=== PATIENT | female | born 1965 | race Caucasian/White ===

== ENCOUNTER 2019-07-25 05:04 | Day surgery (SDC) | payer OTHER ==
[2019-07-24 15:23] VITALS: BMI 39.5
[2019-07-25] MEDS ORDERED: PHENAZOPYRIDINE HCL 100 MG TABLET (FP) PO ONE (07:21)
[2019-07-25] MEDS ORDERED: CEFAZOLIN 2 GM/D5W 2 GM/50 ML ML IVPB ONE (07:21)
[2019-07-25] MEDS ORDERED: ROPIVACAINE HCL 0.5% 30ML VIAL ONE (07:23)
[2019-07-25] MEDS ORDERED: MIDAZOLAM HCL 2 MG/2 ML SINGLE DOSE VIAL ONE ×3 (07:24→07:35)
[2019-07-25] MEDS ORDERED: ROCURONIUM BROMIDE 50 MG/5 ML SYRINGE ONE ×3 (07:34→11:24)
[2019-07-25] MEDS ORDERED: DEXAMETHASONE SOD PHOSPHATE 4 MG/1 ML VIAL ONE (07:34)
[2019-07-25] MEDS ORDERED: SUCCINYLCHOLINE CHLORIDE 200 MG/10 ML SYRINGE ONE (07:34)
[2019-07-25] MEDS ORDERED: ceFAZolin SODIUM 1 GM VIAL ONE ×2 (07:34→19:03)
[2019-07-25] MEDS ORDERED: MINERAL OIL/PETROLATUM,WHITE 3.5 GM TUBE ONE (07:35)
[2019-07-25] MEDS ORDERED: PROPOFOL 20 ML ONE ×3 (07:35)
[2019-07-25] MEDS ORDERED: fentaNYL CITRATE 250 MCG/5 ML VIAL ONE ×2 (07:35→09:42)
[2019-07-25] MEDS ORDERED: BUPIVACAINE HCL/PF 0.5% (5 MG/ML) 30 ML VIAL IJ ONE (07:36)
[2019-07-25] MEDS ORDERED: EPHEDRINE SULFATE/0.9% NACL/PF 50 MG/10 ML SYRINGE NR ONE (07:39)
--- NOTE | 2019-07-25 07:49 | HP ---
History & Physical Update - History History: No Change - Physical Physical: No Change - Assessment Assessment: No Change - Plan Plan: No Change (Full H&P in chart from 07/11/19)
[2019-07-25] MEDS: ceFAZolin SODIUM 1 GM VIAL IVPB ONE ×2 (08:55→19:17)
[2019-07-25] MEDS ORDERED: ceFAZolin SODIUM 1 GM VIAL IVPB ONE (09:00)
[2019-07-25] MEDS ORDERED: BUPIVACAINE HCL/PF 0.5% (5MG/ML) 10 ML VIAL IJ ONE ×2 (09:25)
[2019-07-25] MEDS ORDERED: HYDROmorphone HCl 2 MG/ML VIAL ONE (11:14)
[2019-07-25] MEDS ORDERED: NEOSTIGMINE METHYLSULFATE 0.5 MG/ML - 10 ML MDV ONE (11:43)
[2019-07-25] MEDS ORDERED: LORazepam 0.5 MG TABLET PO PRN (12:16)
[2019-07-25] MEDS ORDERED: METOCLOPRAMIDE HCL INJECTION 10 MG/2 ML VIAL IVPUSH PRN (12:16)
[2019-07-25] MEDS ORDERED: ONDANSETRON 4 MG/2 ML VIAL IVPB PRN (12:16)
[2019-07-25] MEDS ORDERED: PROCHLORPERAZINE INJECTION 10 MG/2 ML VIAL IVPB PRN (12:16)
[2019-07-25] MEDS ORDERED: morphine CARPU-JECT 2 MG/1 ML DISP.SYRIN IVPUSH PRN (12:16)
--- NOTE | 2019-07-25 12:24 | OP ---
Operative Note - Note: Operative Date: 07/25/19 Pre-Operative Diagnosis: Left adenexal mass Operation: Robotic assisted hysterectomy, bilateral oopherectomy and salpingectomy, pelvic lymph node dissection Post-Operative Diagnosis: Same as Pre-op Surgeon: Carolyn Omer Experience Planning Strategist: Archie Crooks Anesthesiologist/TEXTILE DESIGNER: Reilly Taylor Anesthesia: General Operative Report Dictated: Yes
--- NOTE | 2019-07-25 12:24 | SURG ---
Surgery Counter Attendant Note Counter Attendant: Archie Crooks PA-C Date of Service: 07/25/19 Diagnosis: Left adenexal mass Procedure: Robotic assisted hysterectomy, bilateral oopherectomy and salpingectomy, pelvic lymph node dissection I was present for the entirety of the operative procedure. For further detail, please refer to operative report. Visit type - Case Type Case Type: Scheduled - Emergency Emergency Visit: No - New patient This patient is new to me today: Yes Date on this admission: 07/25/19 - Critical Care Critical Care patient: No
[2019-07-25] MEDS ORDERED: ACETAMINOPHEN INJECTION 100 ML IVPB ONE (12:53)
[2019-07-25] MEDS: KETOROLAC TROMETHAMINE 30 MG/1 ML VIAL IVPUSH PRN ×2 (13:00→19:15)
[2019-07-25] MEDS ORDERED: ACETAMINOPHEN 1000 MG/100 ML VIAL (NON FORMULARY) IVPB ONE (13:04)
[2019-07-25] MEDS ORDERED: MORPHINE SULFATE 2 MG/ML VIAL IVPUSH PRN (14:19)
--- NOTE | 2019-07-25 14:32 | OP ---
DATE OF OPERATION: 07/25/2019 PREOPERATIVE DIAGNOSIS: Left adnexal mass. POSTOPERATIVE DIAGNOSIS: Left ovarian cancer. PROCEDURE: Robotic-assisted total hysterectomy, bilateral salpingo-oophorectomy, bilateral pelvic periaortic lymph node dissection, and infracolic omentectomy. SURGEON: Carolyn Omer MD PLATFORM LOADER: ANESTHESIA: General endotracheal and local. ESTIMATED BLOOD LOSS: 50 mL. INDICATIONS: This is a 53-year-old 4, para 3 with history of a left adnexal mass and strong family history of ovarian and breast cancer. She presented with pelvic pain for 1 year in the left lower quadrant. On May 30, 2019, she had a pelvic ultrasound that showed the uterus to be 7.2 x 6.0 x 4.9 cm. Endometrial stripe was 2.46 mm. Left ovary was 7.6 x 8.3 x 8.5 cm. Right ovary appeared normal. She has a family history of ovarian and breast cancer in her mother and maternal grandmother with ovarian cancer. Maternal aunt and maternal cousin with breast cancer. Patient reports negative genetic testing in 2010. Patient was consulted regarding surgical management. Risks, benefits, indications, alternatives were discussed with the patient. All questions were answered. Informed consent was signed. FINDINGS: Cervix, no lesions. Vagina, no lesions. Intra-abdominal findings, normal liver edge, normal diaphragm, normal appendix. Uterus 8 weeks size. Left ovary contained an 8-mm smooth walled cyst. Right ovary and tube appeared normal. Left tube appeared normal. The cul-de-sac appeared normal. There was no ascites or evidence of disease. Omentum appeared normal. There were several left pelvic lymph nodes, which were enlarged and suspicious as well as right obturator pelvic lymph node, which appeared suspicious. There was no other evidence of disease in the abdomen or pelvis. DESCRIPTION OF PROCEDURE: The patient was taken to the operating room. Placed in the dorsal supine position. General endotracheal anesthesia was obtained without difficulty. She was placed in the dorsal lithotomy position in Dima stirrups and prepped and draped in normal sterile fashion. Loera catheter was placed in the bladder. A speculum was placed in the vagina. Cervix was grasped with a single-tooth tenaculum, and a VCare uterine manipulator was placed. Tenaculum and speculum were then removed. Attention was turned to the patient's abdomen, 5 mL of 0.25% Marcaine was injected into the umbilicus, and an 8-mm incision was made with a scalpel. While tenting the anterior abdominal wall, the Veress needle was inserted intra-abdominally, and abdomen was insufflated with CO2 gas. An 8-mm trocar was placed. Intra-abdominal placement was confirmed by direct visualization with a laparoscope. Additional 8-mm trocar was placed in the left mid quadrant and right mid quadrant, and a 5-mm AirSeal port was placed in the right lower quadrant. All trocars were placed under direct visualization after injecting 0.25% Marcaine. A thorough exam of the abdomen and pelvis revealed the above-noted findings. Peritoneal washings were taken using normal saline. The [place] robot was then docked without difficulty. The right adnexa was elevated. The right ureter was noted to be well away from the field of dissection. The right infundibulopelvic ligament was clamped, cauterized, and transected. This was carried through the broad ligament and the round ligament and the vesicouterine peritoneum anteriorly. The left adnexa was elevated. Left ureter was noted to be well away from the field of dissection. The left infundibulopelvic ligament was clamped, cauterized, and transected. This was carried through the broad ligament and the round ligament and the vesicouterine peritoneum anteriorly. The uterine arteries bilaterally were skeletonized. They were clamped, cauterized, and transected. Cardinal ligaments were serially clamped, cauterized, and transected, and uterosacral ligaments were serially clamped, cauterized, and transected. A vaginotomy incision was made circumferentially on the cervix. Uterus, cervix, ovaries, and tubes were passed through the vagina without difficulty. The vaginal cuff was closed in a running, continuous fashion using 2-0 V-Lock suture, and the pelvis was thoroughly irrigated with saline and noted to be hemostatic. The left ovary was sent for frozen section, and it returned malignant. Therefore, a staging procedure was begun. The left retroperitoneum was opened. The left genitofemoral nerve was identified and avoided. The lymph nodes on the external iliac artery on the medial and lateral surface were removed from the distal 1/2 of the common iliac to the circumflex. These were handed off the field. Obturator space was opened. Lymph nodes in the obturator space. After identifying, the obturator nerve were removed and handed off the field. Excellent hemostasis was seen. Left periaortic area was opened cephalad, and lymph nodes to approximately 4 cm above the aortic bifurcation were removed. These were handed off the field as left periaortic lymph nodes. Surgicel was placed in the lymph node beds for added assurance. The right retroperitoneum was opened. The external iliac adventitial tissue was opened. Lymph nodes on the medial and lateral surface of the external iliac artery from the distal 1/2 of the common iliac to the deep circumflex were removed taking care to avoid the genitofemoral nerve and the ureter. Obturator space was opened. Obturator nerve was identified, and lymph nodes anterior to this were removed. Excellent hemostasis was seen. These lymph nodes were handed off the field. The right retroperitoneum was opened cephalad, and lymph nodes overlying the inferior vena cava were removed and handed off the field. Surgicel was placed here for added assurance. Excellent hemostasis was seen. At this point, we brought the omentum into the pelvis and dissected the omentum from the transverse colon. The vessels in the omentum were clamped, cauterized, and transected. The omentum was then dissected off the omentum and handed off the field in a large EndoCatch bag. The right lower quadrant incision had been changed to a 12-mm AirSeal port. The pelvis was thoroughly irrigated at the end of the procedure and noted to be hemostatic. Excellent hemostasis was seen. The right lower quadrant trocar was removed, and a Sav-Svetlana device was used to close the fascia with 0 Vicryl x2 at the fascia. All trocars were removed. Skin was closed with 4-0 Monocryl. Dermabond was applied. The patient was extubated and transferred in stable condition to the PACU. [id number]
[2019-07-25] MEDS: CEFAZOLIN 2 GM in DEXTROSE 5%-WATER - 100 ML IVPB SCH (19:17)
[2019-07-25] MEDS: LACTATED RINGERS SOLUTION 1,000 ML IV SCH (19:27)
[2019-07-25] MEDS ORDERED: GABAPENTIN 300 MG CAPSULE (FP) PO SCH (22:00)
[2019-07-25] MEDS: SIMETHICONE 80 MG TAB.CHEW (FP) PO PRN (22:58)
[2019-07-25] MEDS: metoPROLOL SUCCINATE 25 MG TAB.SR.24H (FP) PO SCH (22:58)
[2019-07-26] MEDS: ACETAMINOPHEN 325 MG TABLET (FP) PO PRN ×2 (02:10→10:11)
[2019-07-26] MEDS: CEFAZOLIN 2 GM in DEXTROSE 5%-WATER - 100 ML IVPB SCH (03:00)
[2019-07-26] MEDS: SIMETHICONE 80 MG TAB.CHEW (FP) PO PRN (06:02)
[2019-07-26] MEDS: LACTATED RINGERS SOLUTION 1,000 ML IV SCH (06:03)
[2019-07-26 08:23] LABS: HEMATOCRIT 37.1 % (32.4-45.2); HEMOGLOBIN 12.4 GM/dL (10.7-15.3); MCH 31.1 pg (25.7-33.7); MCHC 33.5 g/dl (32.0-36.0); MEAN CELL VOLUME 92.6 fl (80-96); MEAN PLT VOLUME 11.3 fl (7.5-11.1); PLATELET COUNT 140 K/MM3 (134-434); RBC 4.01 M/mm3 (3.60-5.2); RDW 13.2 % (11.6-15.6); WHITE BLOOD COUNT 8.3 K/mm3 (4.0-10.0)
[2019-07-26 08:43] LABS: BLOOD UREA NITROGEN 9.4 mg/dL (7-18); CALCIUM 8.9 mg/dL (8.5-10.1); CREATININE 0.8 mg/dL (0.55-1.3); POTASSIUM 3.6 mmol/L (3.5-5.1)
--- NOTE | 2019-07-26 08:52 | PN ---
Progress Note (short form) - Note Progress Note: 53yo F s/p robotic total hysterectomy POD 1, pt seen and examined at bedside. Pt denies any fever, chills, n/v, cp, sob. Pt tolerating PO and ambulating. Loera was just removed and pt has yet to urinate. Abd pain is controlled with pain meds. Last Vital Signs Temp Pulse Resp BP Pulse Ox 99.1 F 76 19 136/69 100 07/26/19 07:03 07/26/19 07:03 07/26/19 07:03 07/26/19 07:03 07/25/19 19:30 CBC, BMP 07/26/19 07:35 PE: Gen: A&O x3 Resp: breathing comfortably Abd; soft, nondistended, mild abd tenderness, incisions are clean with no erythema or discharge. Ext: no edema Problem List - Problems (1) Ovarian mass, left Assessment/Plan: Plan -plan to discharge pt later today, after pt urinates and tolerates PO -Pt will need Lovenox training as will be sent home with 30 days of Lovenox for DVT ppx -OOB/ambulate -DVT ppx Code(s): N83.8 - OTH NONINFLAMMATORY DISORD OF OVARY, FALLOP AND BROAD LIGMT
[2019-07-26] MEDS ORDERED: ENOXAPARIN NA (PORCINE) 40 MG/0.4 ML DISP.SYRIN SQ SCH (10:00)
[2019-07-26] MEDS: metoPROLOL SUCCINATE 25 MG TAB.SR.24H (FP) PO SCH (10:11)
--- NOTE | 2019-07-26 12:00 | PN ---
Progress Note (short form) - Note Progress Note: Anesthesia Post Op Note Pt s/p GA w/ PNB for robotic hysterectomy Pt awake and alert reports minimal pain -- well controlled on po medications Pt denies n/v tolerating po well Pt denies puritis and no urinary retention VSS no apparent anesthesia complications Ramone Wells.
[2019-07-26 14:48] VITALS: BP 127/68; PULSE 70; TEMP 97.5
--- NOTE | 2019-08-01 14:34 | PATH ---
Cytology Non-Gynecological Report Patient Name: KELLI MC [facility]. Rec. #: [id number] /Age/Gender: 1965 (Age: 53) / F Account: [id number] Location: AMBULATORY SURG Taken: 07/25/2019 Received: 07/25/2019 Reported: 08/01/2019 Physicians: Carolyn Omer MD Specimen(s) Received PERITONEAL WASH Clinical History Left adnexal mass Final Diagnosis PERITONEAL WASHINGS: SATISFACTORY FOR EVALUATION. POSITIVE FOR MALIGNANT CELLS, CONSISTENT WITH HIGH GRADE SEROUS CARCINOMA. ALSO SEE CONCURRENT PATHOLOGY REPORT [id number]. Comment: Immunohistochemistry stains performed at [place], [place] ([id number]) and interpreted at show the tumor cells are positive for AE1/AE3, p53 and WT1. Positive and negative controls (internal if applicable) show appropriate results. Electronically Signed Nicholas Izaguirre M.D. Gross Description Approximately 30cc of clear fluid received fresh. One cytospin and one cellblock prepared.
--- NOTE | 2019-08-02 10:46 | PATH ---
Surgical Pathology Report Patient Name: KELLI MC [facility]. Rec. #: [id number] /Age/Gender: 1965 (Age: 53) / F Account: [id number] Location: AMBULATORY SURG Taken: 07/25/2019 Received: 07/25/2019 Reported: 08/02/2019 Physicians: Carolyn Omer MD Specimen(s) Received A: UTERUS, CERVIX, BOTH FALLOPIAN TUBES AND OVARIES FROZEN SECTION B: LEFT PELVIC LYMPH NODE C: LEFT GIGI AOROTIC LYMPH NODE D: RIGHT PELVIC LYMPH NODE E: RIGHT GIGI AOROTIC LYMPH NODE F: OMENTUM Clinical History Left adnexal mass, history of ovarian cancer Intraoperative Consult Diagnosis Left ovary for frozen: Positive for high grade malignant tumor. Final Diagnosis A. UTERUS, CERVIX, BILATERAL FALLOPIAN TUBES AND OVARIES, TOTAL HYSTERECTOMY AND BILATERAL SALPINGO-OOPHORECTOMY (FS): LEFT OVARY WITH SEROUS CARCINOMA, HIGH GRADE. THE CARCINOMA LIMITED TO LEFT OVARY. PATHOLOGIC STAGE CLASSIFICATION (pTNM, AJCC 8TH EDITION): pT1c3 pN0 FIGO STAGE: IC3: MALIGNANT CELLS PRESENT IN THE ASCITES OR PERITONEAL WASHINGS (SEE SEPARATE CYTOLOGY [id number]). UTERUS SHOWING ENDOMETRIAL POLYP, ADENOMYOSIS, AND PROLIFERATIVE ENDOMETRIUM. CERVIX WITH SQUAMOUS METAPLASIA AND CHRONIC CERVICITIS. RIGHT OVARY AND BILATERAL FALLOPIAN TUBES, NEGATIVE FOR CARCINOMA. Comment: Immunohistochemical stained slides (block A22) demonstrate tumor cells to be positive for p53, WT-1 and negative for CK5/6, and D2-40, consistent with serous carcinoma. p53, WT-1, CK5/6, and D2-40 were performed at [place], [place] ([id number]) and interpreted at [facility]. B. LEFT PELVIC LYMPH NODE, EXCISION: FOUR LYMPH NODES, NEGATIVE FOR METASTATIC CARCINOMA (0/4). C. LEFT PERIAORTIC LYMPH NODE, EXCISION: ONE LYMPH NODE, NEGATIVE FOR METASTATIC CARCINOMA (0/1). D. RIGHT PELVIC LYMPH NODE, EXCISION: THREE LYMPH NODES, NEGATIVE FOR METASTATIC CARCINOMA (0/3). E. RIGHT PERIAORTIC LYMPH NODE, EXCISION: FOUR LYMPH NODES, NEGATIVE FOR METASTATIC CARCINOMA (0/4). F. OMENTUM, RESECTION: PORTION OF OMENTUM, NEGATIVE FOR METASTATIC CARCINOMA. Intradepartmental case review concordance of diagnosis. This case was discussed with Dr. Omer on August 02, 2019. Comments Surgical Pathology Cancer Case Summary Procedure _x_ Total hysterectomy and bilateral salpingo-oophorectomy _x_ Peritoneal washing + Hysterectomy Type + _x_ Laparoscopic, robotic-assisted Specimen Integrity of Left Ovary _x_ Capsule intact Tumor Site _x_ Left ovary Ovarian Surface Involvement _x_ Absent Fallopian Tube Surface Involvement _x_ Absent Tumor Size Histologic Type _x_ Serous carcinoma Histologic Grade Two-Tier Grading System _x_ High grade Carcinoma of the peritoneum. _x_ Not identified Peritoneal/Ascitic Fluid _x__ Malignant (positive for malignancy) + Pleural Fluid +_x_ Not submitted Treatment Effect (required only for high-grade serous carcinomas) _x_ No known presurgical therapy Lymph Node Examination _x_ All lymph nodes negative for tumor cells Number of Lymph Nodes Examined: 12 Pathologic Stage Classification (pTNM, AJCC 8th Edition) Primary Tumor (pT) _x_ pT1c3: Malignant cells in ascites or peritoneal washings Regional Lymph Nodes (pN) _x_ pN0: No regional lymph node metastasis + FIGO Stage (2015 FIGO Cancer Report) + _x_ IC3: Malignant cells present in the ascites or peritoneal washings Electronically Signed Nicholas Izaguirre M.D. Gross Description A. Received fresh labeled "uterus, cervix, bilateral fallopian tubes, and ovaries for frozen" is a 196 g uterus with an attached cervix and bilateral adnexa. The uterus measures 10.5 cm from superior to inferior, 4.5 cm from anterior to posterior, and 6.0 cm from left to right. The serosa is ervin-pink and smooth. The attached cervix measures 3 cm in length and averages 3.3 cm in diameter. The ectocervix is ervin-pink, smooth and glistening. The endocervix is unremarkable. The endometrial cavity measures 4 cm in length and averages 4.2 cm from cornu to cornu. The endometrium is ervin-red and measures up to 0.1 cm in thickness. Focal elevated area measuring 1 cm in greatest dimension at anterior endometrium noted. The left ovary show a focally disrupted cyst measures 8 cm in greatest dimension. Sectioning reveals a cystic with irregular, focally necrotic inner surface. The wall of the cyst ranging from 0.1 cm to 1 cm in thickness. The left fimbriated fallopian tube measures 4.5 cm in length. The outer surface is victoria purple and smooth. The tip of the fimbria is focally adherent to the left ovary. Sectioning reveals an unremarkable lumen. The right fimbriated fallopian tube measures 4 cm in length. The outer surface is victoria purple and smooth. Sectioning reveals an unremarkable lumen. The right ovary measures 2.5 x 2.5 x 1 cm .serial sections reveal ervin to yellow solid cut surfaces. Surveillance System Monitor section from the left ovarian cyst is submitted for frozen in one cassette. Other energy conservation representative sections are submitted in 27 cassettes as follows: 1: Frozen tissue control; 2: Left parametrium; 3: Right parametrium; 4-5: anterior cervix; 6-8: posterior cervix; 4-40-lzjnqspu endomyometrium, elevated area; 51-66-jfdorquag endomyometrium; 13-14: Additional anterior endometrium: 15-16: Additional posterior endometrium: 17: Left fallopian tubo-ovarian adhesion area 18-22: Left ovarian cyst; 23-24: The rest of left ovary and left fallopian tube; 25-27: Right tube and right ovary. 28-29: Additional sections from left ovary cyst. B. Received in formalin, labeled "left pelvic lymph node" are 3 portions of nodular lesions consistent with lymph nodes ranging from 1 cm to 2.8 cm dimension. The specimen is entirely submitted 1 cassette. C. Received in formalin, labeled "left periaortic lymph node" are 3 portions of nodular lesions consistent with lymph nodes ranging from 0.6 cm to 0.8 cm dimension. The specimen is entirely submitted 1 cassette. D. Received in formalin, labeled "right pelvic lymph node" are 5 portions of nodular lesions consistent with lymph nodes ranging from 0.5 cm to 1.8 cm dimension. The specimen is entirely submitted 2 cassettes. 1: 4 possible whole lymph nodes; 2: One node, bisected. E. Received in formalin, labeled "right periaortic lymph node" are 4 portions of nodular lesions consistent with lymph nodes ranging from 0.5 cm to 1.3 cm dimension. The specimen is entirely submitted 1 cassette. F. Received in formalin, labeled "omentum" is a portion of yellow adipose tissue consistent with omentum. The specimen is serially sectioned. No nodular lesion present. Surveillance System Monitor sections submitted 2 cassettes __ KWS/07/26/2019 sulki/07/26/2019
== END 2019-07-26 15:18 | disposition home or self-care (01) ==
LOC: JASUSAT 05:04 → EDSTATUS 08:00 → J6S 21:17 → JASUSAT 07-26 15:18
PROVIDERS: ATTEND Obstetrics & Gynecology Gynecologic Oncology
PROC: 0UT2FZZ Resection of Bilateral Ovaries, Via Natural or Artificial Opening With Percutaneous Endoscopic Assistance (ICD-10-PCS; 2019-07-25)
PROC: 0UT7FZZ Resection of Bilateral Fallopian Tubes, Via Natural or Artificial Opening With Percutaneous Endoscopic Assistance (ICD-10-PCS; 2019-07-25)
PROC: 8E0W4CZ Robotic Assisted Procedure of Trunk Region, Percutaneous Endoscopic Approach (ICD-10-PCS; 2019-07-25)
PROC: 07BD4ZX Excision of Aortic Lymphatic, Percutaneous Endoscopic Approach, Diagnostic (ICD-10-PCS; 2019-07-25)
PROC: 0UT9FZZ Resection of Uterus, Via Natural or Artificial Opening With Percutaneous Endoscopic Assistance (ICD-10-PCS; principal; 2019-07-25 08:00)
DX: C56.2 Malignant neoplasm of left ovary (principal); I10 Essential (primary) hypertension; E66.01 Morbid (severe) obesity due to excess calories; Z80.3 Family history of malignant neoplasm of breast; Z80.41 Family history of malignant neoplasm of ovary
CPT/HCPCS: 38573; 58552; S2900; 36415; 80048; 85027; 86850; 86900; 86901; 88104; 88305-TC; 88307-TC; 88331-TC; 94760; J0131

== ENCOUNTER 2019-09-06 10:47 | Day surgery (SDC) | payer OTHER ==
[2019-09-05 14:01] VITALS: BMI 39.5
[2019-09-06 11:52] VITALS: TEMP 98.4
[2019-09-06] MEDS ORDERED: ACETAMINOPHEN 325 MG TABLET (FP) ONE (15:49)
[2019-09-06 18:36] VITALS: BP 132/70; PULSE 80
== END 2019-09-06 16:25 | disposition home or self-care (01) ==
LOC: JRADIR 10:47
PROVIDERS: ATTEND Internal Medicine Hematology & Oncology
PROC: 02HV33Z Insertion of Infusion Device into Superior Vena Cava, Percutaneous Approach (ICD-10-PCS; principal; 2019-09-06)
PROC: B518ZZA Fluoroscopy of Superior Vena Cava, Guidance (ICD-10-PCS; 2019-09-06)
DX: C56.2 Malignant neoplasm of left ovary (principal); E06.3 Autoimmune thyroiditis; I10 Essential (primary) hypertension; R73.03 Prediabetes; M79.7 Fibromyalgia
CPT/HCPCS: 36561; C1751; 77001-TC-FY; C1788

== ENCOUNTER 2019-09-07 07:18 | Day surgery (SDC) | payer OTHER ==
[2019-09-07 09:29] LABS: BASO % 0.7 % (0-2.0); EOS % 0.3 % (0-4.5); HEMATOCRIT 40.7 % (32.4-45.2); HEMOGLOBIN 13.8 GM/dL (10.7-15.3); LYMPH % 19.6 % (8-40); MCHC 33.9 g/dl (32.0-36.0); MEAN CELL VOLUME 91.6 fl (80-96); MEAN PLT VOLUME 10.4 fl (7.5-11.1); MONO % 3.5 % (3.8-10.2); NEUT % 75.9 % (42.8-82.8); PLATELET COUNT 177 K/MM3 (134-434); RBC 4.44 M/mm3 (3.60-5.2); RDW 13.3 % (11.6-15.6); WHITE BLOOD COUNT 5.9 K/mm3 (4.0-10.0)
[2019-09-07 09:58] LABS: ALBUMIN 3.6 g/dl (3.4-5.0); BILIRUBIN,TOTAL 0.3 mg/dL (0.2-1); BLOOD UREA NITROGEN 14.1 mg/dL (7-18); CALCIUM 9.4 mg/dL (8.5-10.1); CREATININE 0.7 mg/dL (0.55-1.3); MAGNESIUM 2.1 mg/dL (1.8-2.4); POTASSIUM 4.3 mmol/L (3.5-5.1); TOT PROT 7.4 g/dl (6.4-8.2)
[2019-09-07] MEDS ORDERED: FAMOTIDINE 20 MG/50 ML IVPB 20 MG/50 ML MG IVPB ONE (10:00)
[2019-09-07] MEDS ORDERED: PALONOSETRON HCL 0.25 MG/5 ML VIAL IVPUSH ONE (10:00)
[2019-09-07] MEDS ORDERED: DIPHENHYDRAMINE 50 MG in SODIUM CHLORIDE 50 ML IVPB ONE (10:00)
[2019-09-07] MEDS ORDERED: FOSAPREPITANT DIMEGLUMINE 150 MG in SODIUM CHLORIDE 150 ML IVPB ONE (10:00)
[2019-09-07] MEDS ORDERED: SODIUM CHLORIDE 0.9% IVPB ONE ×2 (10:30→11:09)
[2019-09-07] MEDS ORDERED: PACLITAXEL IVPB ONE ×2 (10:30→11:09)
[2019-09-07] MEDS ORDERED: SODIUM CHLORIDE 500 ML IV STA (10:43)
[2019-09-07] MEDS ORDERED: DEXAMETHASONE SOD PHOSPHATE 20 MG/5 ML VIAL IVPB ONE (11:01)
[2019-09-07] MEDS ORDERED: DIPHENHYDRAMINE IVPB ONE (11:30)
[2019-09-07] MEDS ORDERED: DEXAMETHASONE IVPB ONE (11:30)
[2019-09-07] MEDS ORDERED: SODIUM CHLORIDE IVPB ONE ×2 (11:30→13:30)
[2019-09-07] MEDS ORDERED: CARBOPLATIN IVPB ONE (13:30)
[2019-09-07] MEDS ORDERED: PORTA CATH FLUSH 10 ML IVPUSH ONE (16:59)
[2019-09-07] MEDS ORDERED: MAG HYDROX/AL HYDROX/SIMETH -MYLANTA- ORAL SUSPENSION PO ONE (19:11)
[2019-09-07 19:35] VITALS: TEMP 98
[2019-09-07 19:36] VITALS: BP 156/89; PULSE 83
== END 2019-09-07 19:30 | disposition home or self-care (01) ==
LOC: JONCCHEMO 07:18 → J7W 11:13 → JONCCHEMO 19:30
PROVIDERS: ATTEND Internal Medicine Hematology & Oncology
DX: Z51.11 Encounter for antineoplastic chemotherapy (principal); C56.2 Malignant neoplasm of left ovary; E06.3 Autoimmune thyroiditis; I10 Essential (primary) hypertension
CPT/HCPCS: 36415; 80053; 83735; 85025; 96361; 96367; 96413; 96415; 96417; J1453; J2469

== ENCOUNTER 2019-09-09 12:59 | Day surgery (SDC) | payer OTHER ==
[~2019-09-09 12:59] MED LIST: PEGFILGRASTIM (NEULASTA) 6 MG/0.6 ML DISP.SYRIN SQ ONE
[2019-09-09 14:27] VITALS: BP 119/70; PULSE 56; TEMP 97.9
== END 2019-09-09 14:50 | disposition home or self-care (01) ==
LOC: J7W 12:59 → JONCCHEMO 12:59
PROVIDERS: ATTEND Internal Medicine Hematology & Oncology
PROC: 3E013GC Introduction of Other Therapeutic Substance into Subcutaneous Tissue, Percutaneous Approach (ICD-10-PCS; principal; 2019-09-09)
DX: C56.2 Malignant neoplasm of left ovary (principal); E06.3 Autoimmune thyroiditis; I10 Essential (primary) hypertension; Z76.89 Persons encountering health services in other specified circumstances
CPT/HCPCS: 96372; J2505

== ENCOUNTER 2019-09-11 09:25 | Observation (INO) | payer OTHER ==
--- NOTE | 2019-09-11 10:20 | PDOC ---
History of Present Illness - General Chief Complaint: Weakness Stated Complaint: ARMS AND LEGS NUMBNESS History Source: Patient Exam Limitations: No Limitations - History of Present Illness Initial Comments: 09/11/19 10:15 53 yo F with a hx of fibromyalgia, HTN, and ovarian cancer (Left; stage 1C) presents to the emergency department with weakness and numbness in the extremities beginning today. Per the patient, she had chemotherapy for the first time this past with Dr. Weber. Her surgery to debulk the tumor was 07/25/2019. Denies the following: fevers, chills, SOB, chest pain, nausea, vomiting, dysuria, hematuria, diarrhea, dysuria, hematuria, and leg pain/ swelling. Allergies: NKDA Social: Denies tobacco, alcohol, and substance abuse. Past History - Past Medical History Allergies/Adverse Reactions: Allergies Allergy/AdvReac Type Severity Reaction Status Date / Time No Known Drug Allergies Allergy Verified 09/11/19 09:31 Home Medications: Ambulatory Orders Metoprolol Succinate [Toprol XL -] 25 mg PO BID 12/09/15 Bupropion HCl [Bupropion Xl] 300 mg PO BID 07/24/19 Gabapentin 300 mg PO HS 07/24/19 Ibuprofen 800 mg PO PRN 07/24/19 Cancer: Yes (OVARIAN) COPD: No Diabetes: Yes (pre diabetes, no medication) GI Disorders: No Disorders: No HTN: Yes Hypercholesterolemia: Yes (no medication) Liver Disease: No Thyroid Disease: Yes (ELENA) Other medical history: FIBROMYALSIA - Surgical History Abdominal Surgery: Yes (abdominoplasty) Orthopedic Surgery: Yes (B/L ROTATOR CUFF) - Psycho Social/Smoking Cessation Hx Smoking History: Never smoked Have you smoked in the past 12 months: No Hx Alcohol Use: No Drug/Substance Use Hx: No Substance Use Type: None Review of Systems - Review of Systems Able to Perform ROS?: Yes Is the patient limited Mongolian proficient: No Constitutional: No: Chills, Diaphoresis, Fever HEENTM: No: Eye Pain, Ear Pain, Nose Pain, Throat Pain, Mouth Pain Respiratory: No: Cough, Shortness of Breath, Hemoptysis Cardiac (ROS): No: Chest Pain, Lightheadedness, Palpitations, Syncope, Chest Tightness ABD/GI: No: Constipated, Diarrhea, Nausea, Rectal Bleeding, Vomiting, Tarry Stools : No: Burning, Dysuria, Incontinence, Pain Musculoskeletal: No: Back Pain, Joint Pain, Neck Pain Integumentary: No: Bruising, Change in Color, Change in Hair/Nails Neurological: Yes: Numbness, Tingling, Weakness (arms and legs). No: Headache Endocrine: No: Unexplained Weight Loss Hematologic/Lymphatic: No: Anemia *Physical Exam - Vital Signs Last Vital Signs Temp Pulse Resp BP Pulse Ox 98.3 F 99 H 16 135/81 100 09/11/19 09:28 09/11/19 09:28 09/11/19 09:28 09/11/19 09:28 09/11/19 09:28 - Physical Exam General Appearance: Yes: Nourished, Appropriately Dressed. No: Apparent Distress, Obese HEENT: positive: EOMI, LATRICIA, Normal Voice, Symmetrical, Pharynx Normal. negative: Pale Conjunctivae, Scleral Icterus (R), Scleral Icterus (L), Muffled/ Hoarse voice, Pharyngeal Erythema, Tonsillar Exudate, Tonsillar Erythema Neck: positive: Trachea midline, Supple. negative: Tender, Lymphadenopathy (R) , Lymphadenopathy (L), Tender lateral, Tender midline Respiratory/Chest: positive: Lungs Clear, Normal Breath Sounds. negative: Chest Tender, Respiratory Distress, Accessory Muscle Use, Rales, Rhonchi, Stridor, Wheezing Cardiovascular: positive: Regular Rhythm, Regular Rate, S1, S2. negative: Systolic Murmur Gastrointestinal/Abdominal: positive: Normal Bowel Sounds, Flat, Soft. negative : Tender Lymphatic: negative: Adenopathy Musculoskeletal: positive: Normal Inspection. negative: CVA Tenderness, Vertebral Tenderness Extremity: positive: Normal Capillary Refill, Normal Inspection, Normal Range of Motion, Other (weakness in hand ball truing machine operator 4/5 bilaterally. leg raise 4/5 bilaterally). negative: Tender Integumentary: positive: Normal Color, Dry, Warm. negative: Swelling, Ecchymosis Neurologic: positive: computer systems support specialist II-XII NML intact, Fully Oriented, Alert, Normal Mood/ Affect ED Treatment Course - LABORATORY CBC & Chemistry Diagram: 09/12/19 05:45 09/12/19 05:45 Medical Decision Making - Medical Decision Making 09/11/19 10:21 53 yo F with a hx of fibromyalgia, HTN, and ovarian cancer (Left; stage 1C) presents to the emergency department with weakness and numbness in the extremities beginning today. Initial vitals: Initial Vital Signs Temp Pulse Resp BP Pulse Ox 98.3 F 99 H 16 135/81 100 09/11/19 09:28 09/11/19 09:28 09/11/19 09:28 09/11/19 09:28 09/11/19 09:28 Patient presents with numbness and weakness in the extremities. Per Dr. Weber, this can be an adverse event with chemo but generally not as fast. Will check electrolytes, cbc, mag, phos, trop, b12, tsh, ua Laboratory Tests 09/11/19 09/11/19 09/11/19 10:15 10:15 10:15 WBC 24.1 H RBC 4.65 Hgb 14.0 Hct 42.2 MCV 90.7 MCH 30.2 MCHC 33.3 RDW 13.5 Plt Count 150 MPV 10.9 Absolute Neuts (auto) 21.5 H Neutrophils % 89.3 H Neutrophils % (Manual) 82.5 Band Neutrophils % 4.1 Lymphocytes % 8.1 D Lymphocytes % (Manual) 9.3 Monocytes % 1.5 L Monocytes % (Manual) 0 L Eosinophils % 0.7 D Eosinophils % (Manual) 0.0 Basophils % 0.4 Basophils % (Manual) 0.0 Myelocytes % (Man) 0 Promyelocytes % (Man) 0 Blast Cells % (Manual) 0 Nucleated RBC % 0 Metamyelocytes 3 H Hypochromia Toxic Granulation 1+ Dohle Bodies 1+ Platelet Estimate Decreased Polychromasia 0 Poikilocytosis 1+ Anisocytosis Microcytosis Macrocytosis Stomatocytes 1+ Sodium 135 L Potassium 4.1 Chloride 102 Carbon Dioxide 27 Anion Gap 6 L BUN 10.7 Creatinine 0.7 Est GFR (CKD-EPI)AfAm 113.84 Est GFR (CKD-EPI)NonAf 98.23 Random Glucose 121 H Calcium 9.2 Phosphorus 1.7 L Magnesium 2.0 Total Bilirubin 0.7 AST 24 ALT 38 Alkaline Phosphatase 122 H Creatine Kinase 70 Troponin I < 0.02 Total Protein 7.5 Albumin 3.7 Vitamin B12 1190 H TSH 1.47 Urine Color Urine Appearance Urine pH Ur Specific Overton Urine Protein Urine Glucose (UA) Urine Ketones Urine Blood Urine Nitrite Urine Bilirubin Urine Urobilinogen Ur Leukocyte Esterase Urine WBC (Auto) Urine RBC (Auto) Urine Casts (Auto) U Epithel Cells (Auto) Urine Bacteria (Auto) 09/11/19 09/12/19 09/12/19 10:25 05:45 05:45 WBC Vitamin B12 TSH Urine Color Yellow Urine Appearance Clear Urine pH >= 9.0 H Ur Specific Overton 1.008 L Urine Protein Negative Urine Glucose (UA) Negative Urine Ketones Negative Urine Blood Negative Urine Nitrite Negative Urine Bilirubin Negative Urine Urobilinogen 0.2 Ur Leukocyte Esterase 1+ H Urine WBC (Auto) 2 Urine RBC (Auto) 2 Urine Casts (Auto) 2 U Epithel Cells (Auto) 4.0 Urine Bacteria (Auto) 62.4 EKG shows NSR without ST elevations or depressions. TWI in Lead III. cervical spine CT negative for acute process. no UTI noted. trop is negative. leukocytosis is consistent with recent chemo use. Per Dr. Valencia, she would like for Dr. Styles to evaluate the patient for new onset peripheral neuropathy in the setting of chemo use will require neurology consultation. Dispo: Admit Discharge - Discharge Information Problems reviewed: Yes Clinical Impression/Diagnosis: Numbness and tingling in both hands - Follow up/Referral - Patient Discharge Instructions - Post Discharge Activity
[2019-09-11 10:22] LABS: BASO % 0.4 % (0-2.0); EOS % 0.7 % (0-4.5); HEMATOCRIT 42.2 % (32.4-45.2); LYMPH % 8.1 % (8-40); MCH 30.2 pg (25.7-33.7); MCHC 33.3 g/dl (32.0-36.0); MEAN CELL VOLUME 90.7 fl (80-96); MEAN PLT VOLUME 10.9 fl (7.5-11.1); MONO % 1.5 % (3.8-10.2); NEUT % 89.3 % (42.8-82.8); PLATELET COUNT 150 K/MM3 (134-434); RBC 4.65 M/mm3 (3.60-5.2); RDW 13.5 % (11.6-15.6); WHITE BLOOD COUNT 24.1 K/mm3 (4.0-10.0)
[2019-09-11 10:50] LABS: HYALINE CASTS 2 /lpf (0-8); PH,URINE >= 9.0 (5.0-8.0); URINE APPEARANCE CLEAR; URINE BACTERIA 62.4 /hpf (NEGATIVE); URINE BILIRUBIN NEGATIVE (NEGATIVE); URINE COLOR YELLOW; URINE GLUCOSE (UA) NEGATIVE (NEGATIVE); URINE KETONE NEGATIVE (NEGATIVE); URINE LEUK ESTERASE 1+ (NEGATIVE); URINE NITRITE NEGATIVE (NEGATIVE); URINE PROTEIN NEGATIVE (NEGATIVE); URINE RBC 2 /hpf (0-4); URINE UROBILINOGEN 0.2 mg/dL (0.2-1.0); URINE WBC 2 /hpf (0-5)
[2019-09-11 10:51] LABS: ALBUMIN 3.7 g/dl (3.4-5.0); BILIRUBIN,TOTAL 0.7 mg/dL (0.2-1); BLOOD UREA NITROGEN 10.7 mg/dL (7-18); CALCIUM 9.2 mg/dL (8.5-10.1); CREATININE 0.7 mg/dL (0.55-1.3); PHOSPHOROUS 1.7 mg/dL (2.5-4.9); POTASSIUM 4.1 mmol/L (3.5-5.1); TOT PROT 7.5 g/dl (6.4-8.2)
[2019-09-11 11:47] LABS: PLATELET ESTIMATE DECREASED; TOXIC GRANULATION 1+
[2019-09-11] MEDS ORDERED: ACETAMINOPHEN 1000 MG/100 ML VIAL (NON FORMULARY) IVPB ONE (12:46)
[2019-09-11] MEDS ORDERED: ACETAMINOPHEN INJECTION 100 ML IVPB ONE (13:03)
[2019-09-11] MEDS ORDERED: morphine CARPU-JECT 4 MG/1 ML DISP.SYRIN IVPUSH ONE (13:11)
[2019-09-11] MEDS ORDERED: morphine SULFATE 4 MG/ML VIAL ONE (13:38)
--- NOTE | 2019-09-11 15:59 | CON.NEURO ---
Consult Consult Specialty:: Stephani Referred by:: Jody - History of Present Illness History of Present Illness: 53-year-old right-handed female patient with present medical history significant for Migraine headache Anxiety Referring cancer status post debulking status post versus chemotherapy Came in to the hospital with a chief complaint of weakness I discussed the case with the emergency room physician CAT scan of the cervical spine was done no evidence of metastasis Patient was seen in the medical floor I know the patient from [facility] office with migraine headcahe - History Source History Provided By: Patient Limitations to Obtaining History: No Limitations - Past Medical History ...LMP: 05/15/18 - Alcohol/Substance Use Hx Alcohol Use: No - Smoking History Smoking history: Never smoked Have you smoked in the past 12 months: No Home Medications - Allergies Allergies/Adverse Reactions: Allergies Allergy/AdvReac Type Severity Reaction Status Date / Time No Known Drug Allergies Allergy Verified 09/11/19 09:31 - Home Medications Home Medications: Ambulatory Orders Metoprolol Succinate [Toprol XL -] 25 mg PO BID 12/09/15 Bupropion HCl [Bupropion Xl] 300 mg PO BID 07/24/19 Gabapentin 300 mg PO HS 07/24/19 Ibuprofen 800 mg PO PRN 07/24/19 Family Medical History Family History: Unremarkable Review of Systems - Review of Systems Neurological: reports: Incoordination, Numbness, Parasthesia Physical Exam-Neuro Vital Signs: Vital Signs Temperature 98.3 F 09/11/19 09:28 Pulse Rate 99 H 09/11/19 09:28 Respiratory Rate 16 09/11/19 09:28 Blood Pressure 135/81 09/11/19 09:28 O2 Sat by Pulse Oximetry (%) 100 09/11/19 09:28 Constitutional: Yes: Well Nourished Neck: Yes: WNL Cardiovascular: Yes: WNL Labs: CBC, BMP 09/11/19 10:15 09/11/19 10:15 - Neuro Exam Level Of Consciousness: Yes: Oriented to Person, Oriented to Place, Oriented to Time Eyes: Yes: PERRLA Speech: WNL Dominant Hand: Right Cranial Nerves II-XII Intact: Yes Gag: Present DTR's: 1+ Left Bicep, 1+ Right Bicep, 1+ Left Tricep, 1+ Right Tricep Response to light touch: Normal Response to pain prick: Normal Response to temperature: Normal Motor Strength: 35: Left Arm, Right Arm, Left Leg, Right Leg Imaging - Results Cat Scan: Image Reviewed Problem List - Problems (1) Numbness and tingling in both hands Assessment/Plan: parathesia carpal Tunnel C Radicluopathy 1. Neuro check 2. Blood work for neuropathy 3. Lyrica 50 mg po q12 4. No neuro indication to stop john chemo Thank you Anum Styles Code(s): R20.0 - ANESTHESIA OF SKIN; R20.2 - PARESTHESIA OF SKIN
--- NOTE | 2019-09-11 16:34 | PDOC ---
Attending Attestation - Resident Resident Name: Steve Trejo - ED Attending Attestation I have performed the following: I have examined & evaluated the patient, The case was reviewed & discussed with the resident, I agree w/resident's findings & plan, Exceptions are as noted - HPI HPI: 09/11/19 16:08 Agree with resident HPI - Physicial Exam PE: 09/11/19 16:08 GENERAL: Awake, alert, and fully oriented, in no acute distress EYES: PERRLA, EOMI, sclera anicteric, conjunctiva clear ENT: Oropharynx clear without exudates. Moist mucosa NECK: Normal ROM, supple, no lymphadenopathy, JVD, or masses LUNGS: Breath sounds equal, clear to auscultation bilaterally. No wheezes, and no crackles HEART: Regular rate and rhythm, normal S1 and S2, no murmurs, rubs or gallops ABDOMEN: Soft, nontender, normoactive bowel sounds. No guarding, no rebound. No masses EXTREMITIES: Normal range of motion, no edema. No clubbing or cyanosis. No cords, erythema, or tenderness NEUROLOGICAL: Normal speech, cranial nerves intact, 5/5 strength in all 4 extremities, normal sensation to light touch in all 4 extremities, normal cerebellar exam, normal gait, normal reflexes and tone SKIN: Warm, Dry, normal turgor, no rashes or lesions noted. - Medical Decision Making 09/11/19 14:32 53-year-old female with a history of ovarian cancer on chemo (first treatment 4 days ago) presents to the emergency department with acute on chronic weakness and numbness in the upper and lower extremities. Exam today wnl neurologically, she has normal strength, sensation, reflexes, tone thus does not need emergent MRI. Pt has had similar sxs in the past but was sent in for admission and neurologic evaluation by Dr. Weber. She is concerned that the chemo might be causing neurologic side effects. Labs wnl. CT c-spine with no acute findings. Case discussed with Dr. Styles who will evaluate pt. Pt admitted to Dr. Florentino for further mgmt Case discussed in detail with admitting physician including history, physical exam and ancillary studies. Admitting physician has assumed care for the patient, will follow all pending diagnostics and will complete the evaluation and treatment.
--- NOTE | 2019-09-11 18:44 | HP ---
Admitting History and Physical - Primary Care Physician PCP: Casey Florentino - Admission History of Present Illness: 53 yo F with a hx of fibromyalgia, HTN, and ovarian cancer (Left; stage 1C) presents to the emergency department with weakness and numbness in the extremities beginning today. Per the patient, she had chemotherapy for the first time this past with Dr. Weber. Her surgery to debulk the tumor was 07/25/2019. Denies the following: fevers, chills, SOB, chest pain, nausea, vomiting, dysuria, hematuria, diarrhea, dysuria, hematuria, and leg pain/ swelling. - Past Medical History ...LMP: 05/15/18 - Smoking History Smoking history: Never smoked Have you smoked in the past 12 months: No - Alcohol/Substance Use Hx Alcohol Use: No Home Medications - Allergies Allergies/Adverse Reactions: Allergies Allergy/AdvReac Type Severity Reaction Status Date / Time No Known Drug Allergies Allergy Verified 09/11/19 09:31 - Home Medications Home Medications: Ambulatory Orders Metoprolol Succinate [Toprol XL -] 25 mg PO BID 12/09/15 Bupropion HCl [Bupropion Xl] 300 mg PO BID 07/24/19 Gabapentin 300 mg PO HS 07/24/19 Ibuprofen 800 mg PO PRN 07/24/19 Physical Examination Vital Signs: Vital Signs Temperature 98.3 F 09/11/19 09:28 Pulse Rate 99 H 09/11/19 09:28 Respiratory Rate 16 09/11/19 09:28 Blood Pressure 135/81 09/11/19 09:28 O2 Sat by Pulse Oximetry (%) 100 09/11/19 09:28 Constitutional: Yes: No Distress HENT: Yes: Atraumatic Neck: Yes: Supple Cardiovascular: Yes: Regular Rate and Rhythm Respiratory: Yes: CTA Bilaterally Gastrointestinal: Yes: Normal Bowel Sounds Extremities: Yes: WNL Edema: No Peripheral Pulses WNL: Yes Neurological: Yes: Alert, Oriented Labs: CBC, BMP 09/11/19 10:15 09/11/19 10:15 Problem List - Problems (1) Numbness and tingling in both hands Assessment/Plan: s/p neulasta dr weber thinks its due to the med pain control hydration Code(s): R20.0 - ANESTHESIA OF SKIN; R20.2 - PARESTHESIA OF SKIN (2) Ovarian mass, left Code(s): N83.8 - [facility] NONINFLAMMATORY DISORD OF OVARY, FALLOP AND [facility] Assessment[facility]Plan Laboratory Tests 09/11/19 09/11/19 09/11/19 10:15 10:15 10:15 WBC 24.1 H RBC 4.65 Hgb 14.0 Hct 42.2 MCV 90.7 MCH 30.2 MCHC 33.3 RDW 13.5 Plt Count 150 MPV 10.9 Absolute Neuts (auto) 21.5 H Neutrophils % 89.3 H Neutrophils % (Manual) 82.5 Band Neutrophils % 4.1 Lymphocytes % 8.1 D Lymphocytes % (Manual) 9.3 Monocytes % 1.5 L Monocytes % (Manual) 0 L Eosinophils % 0.7 D Eosinophils % (Manual) 0.0 Basophils % 0.4 Basophils % (Manual) 0.0 Myelocytes % (Man) 0 Promyelocytes % (Man) 0 Blast Cells % (Manual) 0 Nucleated RBC % 0 Metamyelocytes 3 H Toxic Granulation 1+ Dohle Bodies 1+ Platelet Estimate Decreased Polychromasia 0 Poikilocytosis 1+ Stomatocytes 1+ Sodium 135 L Potassium 4.1 Chloride 102 Carbon Dioxide 27 Anion Gap 6 L BUN 10.7 Creatinine 0.7 Est GFR (CKD-EPI)AfAm 113.84 Est GFR (CKD-EPI)NonAf 98.23 Random Glucose 121 H Calcium 9.2 Phosphorus 1.7 L Magnesium 2.0 Total Bilirubin 0.7 AST 24 ALT 38 Alkaline Phosphatase 122 H Creatine Kinase 70 Troponin I < 0.02 Total Protein 7.5 Albumin 3.7 Vitamin B12 1190 H TSH 1.47 Urine Color Urine Appearance Urine pH Ur Specific [place] Urine Protein Urine Glucose (UA) Urine Ketones Urine Blood Urine Nitrite Urine Bilirubin Urine Urobilinogen Ur Leukocyte Esterase Urine WBC (Auto) Urine RBC (Auto) Urine Casts (Auto) U Epithel Cells (Auto) Urine Bacteria (Auto) 09/11/19 10:25 WBC RBC Hgb Hct MCV MCH MCHC RDW Plt Count MPV Absolute Neuts (auto) Neutrophils % Neutrophils % (Manual) Band Neutrophils % Lymphocytes % Lymphocytes % (Manual) Monocytes % Monocytes % (Manual) Eosinophils % Eosinophils % (Manual) Basophils % Basophils % (Manual) Myelocytes % (Man) Promyelocytes % (Man) Blast Cells % (Manual) Nucleated RBC % Metamyelocytes Toxic Granulation Dohle Bodies Platelet Estimate Polychromasia Poikilocytosis Stomatocytes Sodium Potassium Chloride Carbon Dioxide Anion Gap BUN Creatinine Est GFR (CKD-EPI)AfAm Est GFR (CKD-EPI)NonAf Random Glucose Calcium Phosphorus Magnesium Total Bilirubin AST ALT Alkaline Phosphatase Creatine Kinase Troponin I Total Protein Albumin Vitamin B12 TSH Urine Color Yellow Urine Appearance Clear Urine pH >= 9.0 H Ur Specific [place] 1.008 L Urine Protein Negative Urine Glucose (UA) Negative Urine Ketones Negative Urine Blood Negative Urine Nitrite Negative Urine Bilirubin Negative Urine Urobilinogen 0.2 Ur Leukocyte Esterase 1+ H Urine WBC (Auto) 2 Urine RBC (Auto) 2 Urine Casts (Auto) 2 U Epithel Cells (Auto) 4.0 Urine Bacteria (Auto) 62.4 Active Medications Generic Name Dose Route Start Last Admin Trade Name Freq PRN Reason Stop Dose Admin Acetaminophen 650 mg 09/11/19 22:30 09/11/19 22:44 Tylenol - PO 650 mg Q6H PRN Administration FEVER Bupropion HCl 300 mg 09/12/19 10:00 09/12/19 09:32 Wellbutrin Xl - PO 300 mg DAILY GONZÁLEZ Administration Heparin Sodium (Porcine) 5,000 unit 09/11/19 22:00 09/12/19 09:32 Heparin - SQ Not Given BID GONZÁLEZ Sodium Chloride 1,000 mls @ 75 mls/hr 09/11/19 22:30 09/11/19 22:55 Normal Saline - IV 75 mls/hr ASDIR GONZÁLEZ Administration Metoprolol Succinate 25 mg 09/11/19 22:00 09/12/19 09:32 Toprol Xl - PO 25 mg BID GONZÁLEZ Administration Morphine Sulfate 15 mg 09/12/19 05:15 09/12/19 15:26 Msir - PO 15 mg Q6H PRN Administration PAIN LEVEL 6-10 Pregabalin 50 mg 09/11/19 22:00 09/12/19 09:32 Lyrica - PO 50 mg BID GONZÁLEZ Administration
[2019-09-11] MEDS ORDERED: PATIENT'S OWN MEDICATION (NON-FORMULARY) (Bupropion Hcl [Bupropion Xl] 300 MG) PO SCH (22:00)
[2019-09-11] MEDS ORDERED: GABAPENTIN 300 MG CAPSULE (FP) PO SCH (22:00)
[2019-09-11] MEDS: PREGABALIN 50 MG CAPSULE PO SCH (22:25)
[2019-09-11] MEDS: metoPROLOL SUCCINATE 25 MG TAB.SR.24H (FP) PO SCH (22:25)
[2019-09-11] MEDS ORDERED: ACETAMINOPHEN 325 MG TABLET (FP) PO PRN (22:30)
[2019-09-11] MEDS: SODIUM CHLORIDE 1,000 ML IV SCH (22:55)
[2019-09-11 23:48] VITALS: BMI 39.5
[2019-09-11] MEDS: HEPARIN NA (PORCINE) 5,000 UNITS/ML 1ML VIAL SQ SCH (23:55)
[2019-09-12] MEDS: morphine SULFATE IMMEDIATE RELEASE 30 MG TAB PO PRN ×2 (06:03→15:26)
--- NOTE | 2019-09-12 06:50 | CONSULT ---
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, also with obesity, cervical intervertebral disk disease with intermittent tingling in hands s/p C1 carbo/taol on 09/07 and neulasta on 09/09, comes in with generalized scar aches and worsening tingling/numbness in her hands and now newly on her feet No chills/shakes/abdominal pain/nausea/vomiting /diarrhea/urinary symptoms [id number] VSS Cor: RSR, No murmurs, No gallops Lungs: Clear to P&A Abd: Soft, Normal bowel sounds, No organomegaly Ext:No significant edema Labs/Meds reviewed A/P 53 y/o patient with stage IC , high grade serous carcinoma of the left ovary, cervical intervertebral disk disease with intermittent tingling, numbness, No neuro deficit on exam PAin ---neuropathy versus musculoskeletal pains from neulasta Neuro consult Morphine prn started lyrica Twmp. upto 100.6 --check U/A, cultures, blood cultures Monitor clinical course
[2019-09-12 07:01] LABS: BASO % 0.4 % (0-2.0); EOS % 1.5 % (0-4.5); LYMPH % 10.8 % (8-40); MCH 30.2 pg (25.7-33.7); MCHC 33.2 g/dl (32.0-36.0); MEAN PLT VOLUME 11.7 fl (7.5-11.1); MONO % 2.3 % (3.8-10.2); PLATELET COUNT 129 K/MM3 (134-434); RBC 4.28 M/mm3 (3.60-5.2); RDW 13.5 % (11.6-15.6); WHITE BLOOD COUNT 17.6 K/mm3 (4.0-10.0)
[2019-09-12 07:16] LABS: ALBUMIN 3.2 g/dl (3.4-5.0); BILIRUBIN,TOTAL 0.6 mg/dL (0.2-1); BLOOD UREA NITROGEN 12.3 mg/dL (7-18); CALCIUM 8.7 mg/dL (8.5-10.1); CREATININE 0.6 mg/dL (0.55-1.3); TOT PROT 6.6 g/dl (6.4-8.2)
[2019-09-12] MEDS: metoPROLOL SUCCINATE 25 MG TAB.SR.24H (FP) PO SCH ×2 (09:32→22:14)
[2019-09-12] MEDS: HEPARIN NA (PORCINE) 5,000 UNITS/ML 1ML VIAL SQ SCH ×2 (09:32→22:15)
[2019-09-12] MEDS: PREGABALIN 50 MG CAPSULE PO SCH ×2 (09:32→22:15)
[2019-09-12 10:13] LABS: ANISOCYTOSIS 1+; MACROCYTOSIS 1+; PLATELET ESTIMATE DECREASED
--- NOTE | 2019-09-12 11:29 | EKG ---
Test Reason : Blood Pressure : / mmHG Vent. Rate : 087 BPM Atrial Rate : 087 BPM P-R Int : 136 ms QRS Dur : 084 ms QT Int : 374 ms P-R-T Axes : 029 011 017 degrees QTc Int : 450 ms NORMAL SINUS RHYTHM NORMAL ECG NO PREVIOUS ECGS AVAILABLE Confirmed by MD Melchor, Aubrey ([id number]) on 09/12/2019 11:28:25 AM Referred By: Confirmed By:Aubrey Roche MD
--- NOTE | 2019-09-12 18:58 | PN ---
Progress Note, Physician - Current Medication List Current Medications: Active Medications Acetaminophen (Tylenol -) 650 mg PO Q6H PRN PRN Reason: FEVER Last Admin: 09/11/19 22:44 Dose: 650 mg Bupropion HCl (Wellbutrin Xl -) 300 mg PO DAILY [facility] Last Admin: 09/12/19 09:32 Dose: 300 mg Heparin Sodium (Porcine) (Heparin -) 5,000 unit SQ BID [facility] Last Admin: 09/12/19 09:32 Dose: Not Given Sodium Chloride (Normal Saline -) 1,000 mls @ 75 mls/hr IV ASDIR [facility] Last Admin: 09/11/19 22:55 Dose: 75 mls/hr Metoprolol Succinate (Toprol Xl -) 25 mg PO BID [facility] Last Admin: 09/12/19 09:32 Dose: 25 mg Morphine Sulfate (Msir -) 15 mg PO Q6H PRN PRN Reason: PAIN LEVEL 6-10 Last Admin: 09/12/19 15:26 Dose: 15 mg Pregabalin (Lyrica -) 50 mg PO BID [facility] Last Admin: 09/12/19 09:32 Dose: 50 mg - Objective Vital Signs: Vital Signs Temperature 98.4 F 09/12/19 17:00 Pulse Rate 88 09/12/19 17:00 Respiratory Rate 20 09/12/19 17:00 Blood Pressure 130/68 09/12/19 17:00 O2 Sat by Pulse Oximetry (%) 98 09/11/19 22:30 Constitutional: Yes: No Distress HENT: Yes: Atraumatic Neck: Yes: Supple Cardiovascular: Yes: Regular Rate and Rhythm Respiratory: Yes: CTA Bilaterally Gastrointestinal: Yes: Normal Bowel Sounds Extremities: Yes: WNL Neurological: Yes: Alert, Oriented Labs: CBC, BMP 09/12/19 05:45 09/12/19 05:45 Problem List - Problems (1) Numbness and tingling in both hands Assessment/Plan: s/p samia hernandez thinks its due to the med pain control hydration Code(s): R20.0 - ANESTHESIA OF SKIN; R20.2 - PARESTHESIA OF SKIN (2) Ovarian mass, left Code(s): N83.8 - OTH NONINFLAMMATORY DISORD OF OVARY, FALLOP AND BROAD LIGMT
[2019-09-12] MEDS: SODIUM CHLORIDE 1,000 ML IV SCH (22:16)
[2019-09-13] MEDS: HEPARIN NA (PORCINE) 5,000 UNITS/ML 1ML VIAL SQ SCH (09:10)
[2019-09-13] MEDS: metoPROLOL SUCCINATE 25 MG TAB.SR.24H (FP) PO SCH (09:11)
[2019-09-13] MEDS: PREGABALIN 50 MG CAPSULE PO SCH (09:11)
[2019-09-13 14:22] VITALS: BP 131/87; PULSE 101; TEMP 98.6
== END 2019-09-13 14:30 | disposition home or self-care (01) ==
LOC: JER 09:25 → INTOOBSV 14:32 → JERBED 14:32 → UNDOADMOB 14:32 → J4W 21:55 → JERBED 21:55 → J4W 09-12 10:45 → JERBED 09-12 10:45
PROVIDERS: ADMIT Internal Medicine; ATTEND Internal Medicine
PROC: 3E033NZ Introduction of Analgesics, Hypnotics, Sedatives into Peripheral Vein, Percutaneous Approach (ICD-10-PCS; principal; 2019-09-12)
DX: R20.0 Anesthesia of skin (principal); R20.2 Paresthesia of skin; R53.1 Weakness; C56.2 Malignant neoplasm of left ovary; I10 Essential (primary) hypertension; M79.7 Fibromyalgia; R73.03 Prediabetes; E06.3 Autoimmune thyroiditis; F41.9 Anxiety disorder, unspecified; Z92.21 Personal history of antineoplastic chemotherapy
CPT/HCPCS: 36415; 72125-TC; 80053; 81003; 82550; 82607; 83735; 84100; 84443; 84484; 85025; 87040; 87086; 93005; 93010; 96374; 96375; 99284-25; G0378; J0131; J7030

== ENCOUNTER 2019-09-29 05:40 | Day surgery (SDC) | payer OTHER ==
[2019-09-29] MEDS ORDERED: SODIUM CHLORIDE IVPB ONE ×3 (09:30→13:00)
[2019-09-29] MEDS ORDERED: FAMOTIDINE 20 MG/50 ML IVPB 20 MG/50 ML MG IVPB ONE (09:30)
[2019-09-29] MEDS ORDERED: FOSAPREPITANT DIMEGLUMINE IVPB ONE (09:30)
[2019-09-29] MEDS ORDERED: DIPHENHYDRAMINE 50 MG in SODIUM CHLORIDE 50 ML IVPB ONE (09:30)
[2019-09-29] MEDS ORDERED: PALONOSETRON HCL 0.25 MG/5 ML VIAL IVPUSH ONE (09:30)
[2019-09-29] MEDS ORDERED: PACLITAXEL IVPB ONE ×2 (10:00→13:00)
[2019-09-29 11:40] LABS: BASO % 0.9 % (0-2.0); EOS % 0.1 % (0-4.5); HEMATOCRIT 39.1 % (32.4-45.2); HEMOGLOBIN 13.1 GM/dL (10.7-15.3); LYMPH % 16.9 % (8-40); MCH 30.7 pg (25.7-33.7); MCHC 33.4 g/dl (32.0-36.0); MEAN CELL VOLUME 91.7 fl (80-96); MEAN PLT VOLUME 10.5 fl (7.5-11.1); NEUT % 79.1 % (42.8-82.8); PLATELET COUNT 224 K/MM3 (134-434); RBC 4.27 M/mm3 (3.60-5.2); RDW 13.6 % (11.6-15.6); WHITE BLOOD COUNT 5.4 K/mm3 (4.0-10.0)
[2019-09-29] MEDS ORDERED: DEXAMETHASONE SOD PHOSPHATE 10 MG/1 ML VIAL IVPB ONE (12:00)
[2019-09-29] MEDS ORDERED: SODIUM CHLORIDE 500 ML IV STA (12:04)
[2019-09-29 12:23] LABS: ALBUMIN 3.7 g/dl (3.4-5.0); BILIRUBIN,DIRECT 0.1 mg/dL (0.0-0.2); BILIRUBIN,TOTAL 0.2 mg/dL (0.2-1); BLOOD UREA NITROGEN 15.8 mg/dL (7-18); CALCIUM 9.1 mg/dL (8.5-10.1); CREATININE 0.7 mg/dL (0.55-1.3); MAGNESIUM 2.1 mg/dL (1.8-2.4); POTASSIUM 4.2 mmol/L (3.5-5.1); TOT PROT 7.6 g/dl (6.4-8.2)
[2019-09-29] MEDS ORDERED: CARBOPLATIN IV ONE ×3 (13:00→16:30)
[2019-09-29] MEDS ORDERED: SODIUM CHLORIDE IV ONE ×3 (13:00→16:30)
[2019-09-29 17:54] VITALS: TEMP 98
[2019-09-29 19:17] VITALS: BP 136/76; PULSE 61
== END 2019-09-29 19:17 | disposition home or self-care (01) ==
LOC: JONCCHEMO 05:40 → J7W 10:51 → JONCCHEMO 19:17
PROVIDERS: ATTEND Internal Medicine Hematology & Oncology
DX: Z51.11 Encounter for antineoplastic chemotherapy (principal); C56.2 Malignant neoplasm of left ovary; E06.3 Autoimmune thyroiditis; I10 Essential (primary) hypertension
CPT/HCPCS: 36415; 80048; 80076; 83735; 85025; 96367; 96413; 96415; 96417; J1100; J1453; J2469

== ENCOUNTER 2019-10-01 13:02 | Day surgery (SDC) | payer OTHER ==
[2019-10-01] MEDS ORDERED: PEGFILGRASTIM (NEULASTA) 6 MG/0.6 ML DISP.SYRIN SQ ONE (13:45)
== END 2019-10-01 14:06 | disposition home or self-care (01) ==
LOC: JONCCHEMO 13:02 → J7W 13:02 → JONCCHEMO 14:06
PROVIDERS: ATTEND Internal Medicine Hematology & Oncology
PROC: 3E013GC Introduction of Other Therapeutic Substance into Subcutaneous Tissue, Percutaneous Approach (ICD-10-PCS; principal; 2019-10-01)
DX: C56.2 Malignant neoplasm of left ovary (principal); E06.3 Autoimmune thyroiditis; I10 Essential (primary) hypertension; Z76.89 Persons encountering health services in other specified circumstances
CPT/HCPCS: 96372; J2505

== ENCOUNTER 2019-10-20 07:04 | Day surgery (SDC) | payer OTHER ==
[2019-10-20] MEDS ORDERED: PALONOSETRON HCL 0.25 MG/5 ML VIAL IVPUSH ONE (10:00)
[2019-10-20] MEDS ORDERED: DEXAMETHASONE SODIUM PHOSPHATE 20 MG, DIPHENHYDRAMINE 25 MG in SODIUM CHLORIDE 100 ML IVPB ONE (10:00)
[2019-10-20] MEDS ORDERED: FOSAPREPITANT DIMEGLUMINE 150 MG in SODIUM CHLORIDE 150 ML IVPB ONE (10:00)
[2019-10-20 10:03] LABS: EOS % 0.7 % (0-4.5); HEMATOCRIT 37.1 % (32.4-45.2); HEMOGLOBIN 12.5 GM/dL (10.7-15.3); LYMPH % 28.5 % (8-40); MCH 31.1 pg (25.7-33.7); MCHC 33.8 g/dl (32.0-36.0); MEAN CELL VOLUME 92.3 fl (80-96); MEAN PLT VOLUME 10.8 fl (7.5-11.1); MONO % 9.9 % (3.8-10.2); NEUT % 59.9 % (42.8-82.8); PLATELET COUNT 166 K/MM3 (134-434); RBC 4.02 M/mm3 (3.60-5.2); RDW 15.3 % (11.6-15.6); WHITE BLOOD COUNT 4.6 K/mm3 (4.0-10.0)
[2019-10-20 10:27] LABS: ALBUMIN 3.4 g/dl (3.4-5.0); BILIRUBIN,TOTAL 0.4 mg/dL (0.2-1); CALCIUM 9.6 mg/dL (8.5-10.1); CREATININE 0.7 mg/dL (0.55-1.3); MAGNESIUM 2.1 mg/dL (1.8-2.4); POTASSIUM 4.3 mmol/L (3.5-5.1); TOT PROT 6.9 g/dl (6.4-8.2)
[2019-10-20] MEDS ORDERED: SODIUM CHLORIDE 0.9% IVPB ONE (10:30)
[2019-10-20] MEDS ORDERED: PACLITAXEL IVPB ONE (10:30)
[2019-10-20] MEDS ORDERED: FAMOTIDINE 20 MG/50 ML IVPB 20 MG/50 ML MG IVPB ONE (11:30)
[2019-10-20] MEDS ORDERED: CARBOPLATIN IVPB ONE (13:30)
[2019-10-20] MEDS ORDERED: SODIUM CHLORIDE IVPB ONE (13:30)
[2019-10-20] MEDS ORDERED: SODIUM CHLORIDE 500 ML IV SCH (17:30)
[2019-10-20 18:20] VITALS: TEMP 98.5
[2019-10-20 18:51] VITALS: BP 156/82; PULSE 68
[2019-10-20] MEDS ORDERED: PORTA CATH FLUSH 10 ML IVPUSH ONE (18:51)
== END 2019-10-20 18:52 | disposition home or self-care (01) ==
LOC: JONCCHEMO 07:04 → J7W 10:20 → JONCCHEMO 18:52
PROVIDERS: ATTEND Internal Medicine Hematology & Oncology
DX: Z51.11 Encounter for antineoplastic chemotherapy (principal); C56.2 Malignant neoplasm of left ovary; E06.3 Autoimmune thyroiditis; I10 Essential (primary) hypertension
CPT/HCPCS: 36415; 80053; 83735; 85025; 96361; 96367; 96375; 96413; 96415; 96417; J1453; J2469

== ENCOUNTER 2019-10-22 14:15 | Day surgery (SDC) | payer OTHER ==
[2019-10-22] MEDS ORDERED: SODIUM CHLORIDE 1,000 ML IV ONE (14:30)
[2019-10-22] MEDS ORDERED: PEGFILGRASTIM (NEULASTA) 6 MG/0.6 ML DISP.SYRIN SQ ONE (14:45)
[2019-10-22] MEDS ORDERED: PEGFILGRASTIM-CBQV (UDENYCA) 6 MG/0.6 ML SYRINGE SQ ONE (15:00)
[2019-10-22] MEDS ORDERED: PORTA CATH FLUSH 10 ML IVPUSH ONE (16:47)
[2019-10-22 19:19] VITALS: BP 110/61; PULSE 71; TEMP 98.3
== END 2019-10-22 18:45 | disposition home or self-care (01) ==
LOC: J7W 14:15 → JONCNONCHE 14:15
PROVIDERS: ATTEND Internal Medicine Hematology & Oncology
PROC: 3E0437Z Introduction of Electrolytic and Water Balance Substance into Central Vein, Percutaneous Approach (ICD-10-PCS; principal; 2019-10-22)
DX: C56.2 Malignant neoplasm of left ovary (principal); E06.3 Autoimmune thyroiditis; I10 Essential (primary) hypertension
CPT/HCPCS: 96360; 96361; 96372; J7030; Q5111

== ENCOUNTER 2019-11-10 05:32 | Day surgery (SDC) | payer OTHER ==
[2019-11-10 09:41] LABS: BASO % 0.8 % (0-2.0); EOS % 0.5 % (0-4.5); HEMOGLOBIN 12.3 GM/dL (10.7-15.3); LYMPH % 29.2 % (8-40); MCH 31.2 pg (25.7-33.7); MCHC 33.4 g/dl (32.0-36.0); MEAN CELL VOLUME 93.6 fl (80-96); MEAN PLT VOLUME 10.5 fl (7.5-11.1); MONO % 11.3 % (3.8-10.2); NEUT % 58.2 % (42.8-82.8); PLATELET COUNT 188 K/MM3 (134-434); RBC 3.95 M/mm3 (3.60-5.2); RDW 16.2 % (11.6-15.6); WHITE BLOOD COUNT 4.9 K/mm3 (4.0-10.0)
[2019-11-10] MEDS ORDERED: PALONOSETRON HCL 0.25 MG/5 ML VIAL IVPUSH ONE (10:00)
[2019-11-10] MEDS ORDERED: FOSAPREPITANT DIMEGLUMINE 150 MG in SODIUM CHLORIDE 150 ML IVPB ONE (10:00)
[2019-11-10] MEDS ORDERED: DEXAMETHASONE SODIUM PHOSPHATE 20 MG, DIPHENHYDRAMINE 25 MG in SODIUM CHLORIDE 100 ML IVPB ONE (10:00)
[2019-11-10] MEDS ORDERED: FAMOTIDINE 20 MG/50 ML IVPB 20 MG/50 ML MG IVPB ONE (10:00)
[2019-11-10 10:14] LABS: ALBUMIN 3.4 g/dl (3.4-5.0); BILIRUBIN,TOTAL 0.3 mg/dL (0.2-1); BLOOD UREA NITROGEN 13.1 mg/dL (7-18); CALCIUM 9.1 mg/dL (8.5-10.1); CREATININE 0.6 mg/dL (0.55-1.3); MAGNESIUM 2.2 mg/dL (1.8-2.4); POTASSIUM 3.9 mmol/L (3.5-5.1); TOT PROT 7.1 g/dl (6.4-8.2)
[2019-11-10] MEDS ORDERED: PACLITAXEL IVPB ONE (10:30)
[2019-11-10] MEDS ORDERED: SODIUM CHLORIDE 0.9% IVPB ONE (10:30)
[2019-11-10] MEDS ORDERED: CARBOPLATIN IVPB ONE (13:30)
[2019-11-10] MEDS ORDERED: SODIUM CHLORIDE IVPB ONE (13:30)
[2019-11-10 16:05] VITALS: BP 121/85; PULSE 84; TEMP 97.4
== END 2019-11-10 14:25 | disposition home or self-care (01) ==
LOC: JONCCHEMO 05:32 → J7W 11:25 → JONCCHEMO 14:25
PROVIDERS: ATTEND Internal Medicine Hematology & Oncology
DX: Z51.11 Encounter for antineoplastic chemotherapy (principal); C56.2 Malignant neoplasm of left ovary; E06.3 Autoimmune thyroiditis; I10 Essential (primary) hypertension
CPT/HCPCS: 36415; 80053; 83735; 85025; 96367; 96413; J1453; J2469

== ENCOUNTER 2019-11-11 15:50 | Day surgery (SDC) | payer OTHER ==
[~2019-11-11 15:50] MED LIST changes: -PEGFILGRASTIM (NEULASTA) 6 MG/0.6 ML DISP.SYRIN SQ ONE; +PEGFILGRASTIM-CBQV (UDENYCA) 6 MG/0.6 ML SYRINGE SQ ONE
[2019-11-11 18:22] VITALS: BP 138/78; PULSE 82; TEMP 98.2
== END 2019-11-11 17:00 | disposition home or self-care (01) ==
LOC: JONCCHEMO 15:50 → J7W 15:52 → JONCCHEMO 17:00
PROVIDERS: ATTEND Internal Medicine Hematology & Oncology
PROC: 3E013GC Introduction of Other Therapeutic Substance into Subcutaneous Tissue, Percutaneous Approach (ICD-10-PCS; principal; 2019-11-11)
DX: C56.2 Malignant neoplasm of left ovary (principal); Z76.89 Persons encountering health services in other specified circumstances
CPT/HCPCS: 96372; Q5111

== ENCOUNTER 2019-12-01 07:03 | Day surgery (SDC) | payer OTHER ==
[2019-12-01] MEDS ORDERED: PALONOSETRON HCL 0.25 MG/5 ML VIAL IVPUSH ONE (09:30)
[2019-12-01] MEDS ORDERED: FOSAPREPITANT DIMEGLUMINE 150 MG in SODIUM CHLORIDE 145 ML IVPB ONE (09:30)
[2019-12-01] MEDS ORDERED: FAMOTIDINE 20 MG/50 ML IVPB 20 MG/50 ML MG IVPB ONE (09:30)
[2019-12-01] MEDS ORDERED: DEXAMETHASONE SODIUM PHOSPHATE 20 MG, DIPHENHYDRAMINE 25 MG in SODIUM CHLORIDE 100 ML IVPB ONE (09:30)
[2019-12-01] MEDS ORDERED: SODIUM CHLORIDE IVPB ONE ×2 (10:00→13:00)
[2019-12-01] MEDS ORDERED: PACLITAXEL IVPB ONE (10:00)
[2019-12-01 10:50] LABS: BASO % 0.4 % (0-2.0); EOS % 0.5 % (0-4.5); HEMATOCRIT 35.6 % (32.4-45.2); LYMPH % 25.9 % (8-40); MCH 31.8 pg (25.7-33.7); MCHC 33.8 g/dl (32.0-36.0); MEAN CELL VOLUME 94.2 fl (80-96); MEAN PLT VOLUME 9.5 fl (7.5-11.1); MONO % 6.9 % (3.8-10.2); NEUT % 66.3 % (42.8-82.8); PLATELET COUNT 131 K/MM3 (134-434); RBC 3.78 M/mm3 (3.60-5.2); RDW 17.2 % (11.6-15.6); WHITE BLOOD COUNT 3.7 K/mm3 (4.0-10.0)
[2019-12-01 11:25] LABS: ALBUMIN 3.6 g/dl (3.4-5.0); BILIRUBIN,TOTAL 0.3 mg/dL (0.2-1); BLOOD UREA NITROGEN 11.2 mg/dL (7-18); CALCIUM 9.1 mg/dL (8.5-10.1); CREATININE 0.7 mg/dL (0.55-1.3); POTASSIUM 3.7 mmol/L (3.5-5.1)
[2019-12-01] MEDS ORDERED: CARBOPLATIN IVPB ONE (13:00)
== END 2019-12-01 13:00 | disposition home or self-care (01) ==
LOC: JONCCHEMO 07:03
PROVIDERS: ATTEND Internal Medicine Hematology & Oncology
DX: Z53.8 Procedure and treatment not carried out for other reasons (principal)
CPT/HCPCS: 36415; 80053; 85025; 86304

== ENCOUNTER → 2019-12-08 | Day surgery (SDC) | payer OTHER ==
[~2019-12-08] MED LIST changes: +CARBOPLATIN IVPB ONE; +DEXAMETHASONE SODIUM PHOSPHATE 20 MG, DIPHENHYDRAMINE 25 MG in SODIUM CHLORIDE 100 ML IVPB ONE; +FAMOTIDINE 20 MG/50 ML IVPB 20 MG/50 ML MG IVPB ONE; +FOSAPREPITANT DIMEGLUMINE 150 MG in SODIUM CHLORIDE 145 ML IVPB ONE; +PACLITAXEL IVPB ONE; +PALONOSETRON HCL 0.25 MG/5 ML VIAL IVPUSH ONE; -PEGFILGRASTIM-CBQV (UDENYCA) 6 MG/0.6 ML SYRINGE SQ ONE; +SODIUM CHLORIDE IVPB ONE
[2019-12-08 11:23] LABS: BASO % 0.6 % (0-2.0); EOS % 1.3 % (0-4.5); HEMATOCRIT 37.7 % (32.4-45.2); HEMOGLOBIN 12.8 GM/dL (10.7-15.3); MCH 32.7 pg (25.7-33.7); MCHC 33.8 g/dl (32.0-36.0); MEAN CELL VOLUME 96.7 fl (80-96); MEAN PLT VOLUME 10.1 fl (7.5-11.1); MONO % 9.5 % (3.8-10.2); NEUT % 42.6 % (42.8-82.8); PLATELET COUNT 164 K/MM3 (134-434); RDW 16.4 % (11.6-15.6); WHITE BLOOD COUNT 3.9 K/mm3 (4.0-10.0)
[2019-12-08 11:57] LABS: ALBUMIN 3.6 g/dl (3.4-5.0); BILIRUBIN,TOTAL 0.4 mg/dL (0.2-1); BLOOD UREA NITROGEN 14.6 mg/dL (7-18); CALCIUM 8.8 mg/dL (8.5-10.1); CREATININE 0.7 mg/dL (0.55-1.3); POTASSIUM 3.9 mmol/L (3.5-5.1); TOT PROT 7.3 g/dl (6.4-8.2)
== END | disposition home or self-care (01) ==
LOC: JONCCHEMO 05:40
PROVIDERS: ATTEND Internal Medicine Hematology & Oncology
DX: Z53.8 Procedure and treatment not carried out for other reasons (principal)
CPT/HCPCS: 36415; 80053; 83735; 85025; 96365

== ENCOUNTER → 2019-12-20 | Day surgery (SDC) | payer OTHER ==
[~2019-12-20] MED LIST changes: -CARBOPLATIN IVPB ONE; -DEXAMETHASONE SODIUM PHOSPHATE 20 MG, DIPHENHYDRAMINE 25 MG in SODIUM CHLORIDE 100 ML IVPB ONE; -FAMOTIDINE 20 MG/50 ML IVPB 20 MG/50 ML MG IVPB ONE; -FOSAPREPITANT DIMEGLUMINE 150 MG in SODIUM CHLORIDE 145 ML IVPB ONE; -PACLITAXEL IVPB ONE; -PALONOSETRON HCL 0.25 MG/5 ML VIAL IVPUSH ONE; +PEGFILGRASTIM-CBQV (UDENYCA) 6 MG/0.6 ML SYRINGE SQ ONE; -SODIUM CHLORIDE IVPB ONE
[2019-12-20 10:26] LABS: BASO % 0.7 % (0-2.0); EOS % 0.5 % (0-4.5); HEMATOCRIT 38.8 % (32.4-45.2); HEMOGLOBIN 13.2 GM/dL (10.7-15.3); LYMPH % 39.1 % (8-40); MCH 32.7 pg (25.7-33.7); MCHC 33.9 g/dl (32.0-36.0); MEAN CELL VOLUME 96.6 fl (80-96); NEUT % 48.7 % (42.8-82.8); PLATELET COUNT 201 K/MM3 (134-434); RBC 4.02 M/mm3 (3.60-5.2); RDW 15.1 % (11.6-15.6); WHITE BLOOD COUNT 3.4 K/mm3 (4.0-10.0)
[2019-12-20 11:00] LABS: ALBUMIN 3.8 g/dl (3.4-5.0); BILIRUBIN,TOTAL 0.3 mg/dL (0.2-1); BLOOD UREA NITROGEN 13.6 mg/dL (7-18); CALCIUM 9.7 mg/dL (8.5-10.1); CREATININE 0.7 mg/dL (0.55-1.3); POTASSIUM 4.6 mmol/L (3.5-5.1); TOT PROT 7.4 g/dl (6.4-8.2)
== END | disposition home or self-care (01) ==
LOC: JONCCHEMO 12-13 05:36
PROVIDERS: ATTEND Internal Medicine Hematology & Oncology
DX: Z53.8 Procedure and treatment not carried out for other reasons (principal)
CPT/HCPCS: 36415; 80053; 83735; 85025; 96365

== ENCOUNTER → 2020-12-18 | Day surgery (SDC) | payer OTHER ==
[~2020-12-18] MED LIST changes: -PEGFILGRASTIM-CBQV (UDENYCA) 6 MG/0.6 ML SYRINGE SQ ONE; +ceFAZolin SODIUM 1 GM VIAL IM ONE
== END | disposition home or self-care (01) ==
LOC: JRADIR 09:59
PROVIDERS: ATTEND Internal Medicine Hematology & Oncology
PROC: 0JPT0WZ Removal of Totally Implantable Vascular Access Device from Trunk Subcutaneous Tissue and Fascia, Open Approach (ICD-10-PCS; principal; 2020-12-18)
DX: Z45.2 Encounter for adjustment and management of vascular access device (principal)
CPT/HCPCS: 36590

== ENCOUNTER 2021-01-20 18:47 | Emergency (ER) | payer OTHER ==
[2021-01-20 19:09] VITALS: BP 136/72; PULSE 80; TEMP 99.2; BMI 39.9
== END 2021-01-20 21:08 | disposition home or self-care (01) ==
LOC: JER 18:47
DX: J12.82 Pneumonia due to coronavirus disease 2019 (principal)
CPT/HCPCS: 71046-TC-FY; 99283-25

== ENCOUNTER 2021-06-13 21:34 | Emergency (ER) | payer OTHER ==
[2021-06-13 21:40] VITALS: PULSE 81; TEMP 97.7; BMI 41.8
[2021-06-13 23:02] LABS: BASO % 0.8 % (0-2.0); EOS % 0.2 % (0-4.5); HEMATOCRIT 40.7 % (32.4-45.2); LYMPH % 30.6 % (8-40); MCH 31.2 pg (25.7-33.7); MCHC 34.2 g/dl (32.0-36.0); MEAN CELL VOLUME 91.2 fl (80-96); MEAN PLT VOLUME 10.7 fl (7.5-11.1); MONO % 7.7 % (3.8-10.2); NEUT % 60.7 % (42.8-82.8); PLATELET COUNT 164 10^3/uL (134-434); RBC 4.47 M/mm3 (3.60-5.2); RDW 13.6 % (11.6-15.6); WHITE BLOOD COUNT 5.9 K/mm3 (4.0-10.0)
[2021-06-13 23:30] LABS: CHLORIDE 106 mmol/L (98-107); SODIUM 139 mmol/L (136-145)
[2021-06-13 23:32] LABS: CALCIUM 9.1 mg/dL (8.5-10.1)
[2021-06-13 23:33] LABS: ALBUMIN 3.8 g/dl (3.4-5.0); ANION GAP 8 MMOL/L (8-16); BLOOD UREA NITROGEN 13.4 mg/dL (7-18); CO2 26 mmol/L (21-32); GLUCOSE,RANDOM 91 mg/dL (74-106)
[2021-06-13 23:34] LABS: ERYTHROCYTE SEDIMENTATION RATE 13 mm/hr (0-30)
[2021-06-13 23:36] LABS: CREATININE 0.8 mg/dL (0.55-1.3); SGOT/AST 23 U/L (15-37); SGPT/ALT 28 U/L (13-61)
[2021-06-13 23:37] LABS: BILIRUBIN,TOTAL 0.3 mg/dL (0.2-1)
[2021-06-13 23:38] LABS: ALK PHOS 87 U/L (45-117); TOT PROT 7.4 g/dl (6.4-8.2)
[2021-06-14 00:33] VITALS: BP 130/82
== END 2021-06-14 00:33 | disposition home or self-care (01) ==
LOC: JER 21:34
DX: M79.10 Myalgia, unspecified site (principal); T50.B95A Adverse effect of other viral vaccines, initial encounter
CPT/HCPCS: 36415; 71045-TC-FY; 80053; 82550; 82553; 84484; 85025; 85651; 86140; 93005; 93010; 99285-25

== ENCOUNTER 2022-07-02 17:27 | Emergency (ER) | payer OTHER ==
[2022-07-02 17:43] VITALS: BP 98/62; PULSE 91; RESP 22; TEMP 100.6; BMI 41.9
[2022-07-02] MEDS ORDERED: IBUPROFEN 600 MG TABLET (FP) PO ONE ×2 (18:22→18:40)
[2022-07-02] MEDS ORDERED: DEXAMETHASONE SOD PHOSPHATE 10 MG/1 ML VIAL PO ONE (18:22)
[2022-07-02] MEDS ORDERED: DEXAMETHASONE SOD PHOSPHATE 10 MG/1 ML VIAL ONE (18:40)
== END 2022-07-02 20:17 | disposition home or self-care (01) ==
LOC: JER 17:27
DX: J06.9 Acute upper respiratory infection, unspecified (principal)
CPT/HCPCS: 71046-TC-FY; 99284-25; J1100

== ENCOUNTER 2022-07-15 10:33 | Emergency (ER) | payer OTHER ==
[2022-07-15 11:11] VITALS: BP 160/83; PULSE 74; RESP 18; TEMP 98.2; BMI 39.6
[2022-07-15 13:29] LABS: BASO % 0.4 % (0-2.0); EOS % 0.1 % (0-4.5); HEMATOCRIT 42.3 % (32.4-45.2); HEMOGLOBIN 14.2 GM/dL (10.7-15.3); LYMPH % 39.5 % (8-40); MCH 31.2 pg (25.7-33.7); MCHC 33.6 g/dl (32.0-36.0); MEAN CELL VOLUME 92.6 fl (80-96); MEAN PLT VOLUME 9.6 fl (7.5-11.1); MONO % 6.2 % (3.8-10.2); NEUT % 53.8 % (42.8-82.8); PLATELET COUNT 273 10^3/uL (134-434); RBC 4.56 M/mm3 (3.60-5.2); RDW 13.4 % (11.6-15.6); WHITE BLOOD COUNT 8.4 K/mm3 (4.0-10.0)
[2022-07-15 13:49] LABS: CALCIUM 9.3 mg/dL (8.5-10.1)
[2022-07-15 13:50] LABS: ALBUMIN 3.4 g/dl (3.4-5.0); BLOOD UREA NITROGEN 21.6 mg/dL (7-18)
[2022-07-15 13:53] LABS: CREATININE 0.6 mg/dL (0.55-1.3)
[2022-07-15 13:54] LABS: BILIRUBIN,TOTAL 0.3 mg/dL (0.2-1); TOT PROT 7.4 g/dl (6.4-8.2)
[2022-07-20 14:07] LABS: E.chaff HME IgG Negative (Neg:<1:64)
[2022-07-21 14:06] LABS: BABESIA MICROTI ANTIBODY IGG <1:10 (Neg:<1:10); BABESIA MICROTI ANTIBODY IGM <1:10 (Neg:<1:10)
== END 2022-07-15 14:17 | disposition home or self-care (01) ==
LOC: JER 10:33
DX: R05.1 Acute cough (principal); M79.10 Myalgia, unspecified site; R68.83 Chills (without fever)
CPT/HCPCS: 0241U-QW; 36415; 71046-TC-FY; 80053; 85025; 86618; 86666; 86753; 86780; 86790; 87798; 99284-25

== ENCOUNTER 2023-07-27 12:55 | Observation (INO) | payer OTHER ==
[2023-07-27 15:17] LABS: BASO % 0.8 % (0-2.0); EOS % 0.7 % (0-4.5); HEMATOCRIT 39.8 % (32.4-45.2); HEMOGLOBIN 12.8 GM/dL (10.7-15.3); LYMPH % 26.5 % (8-40); MCH 29.8 pg (25.7-33.7); MCHC 32.3 g/dl (32.0-36.0); MEAN CELL VOLUME 92.5 fl (80-96); MEAN PLT VOLUME 11.2 fl (7.5-11.1); MONO % 7.7 % (3.8-10.2); NEUT % 64.3 % (42.8-82.8); PLATELET COUNT 162 10^3/uL (134-434); RDW 13.3 % (11.6-15.6); WHITE BLOOD COUNT 7.7 K/mm3 (4.0-10.0)
[2023-07-27 15:26] LABS: PH,URINE 6.5 (5.0-8.0); URINE APPEARANCE CLEAR; URINE BILIRUBIN NEGATIVE (NEGATIVE); URINE COLOR YELLOW; URINE GLUCOSE (UA) NEGATIVE (NEGATIVE); URINE KETONE NEGATIVE (NEGATIVE); URINE LEUK ESTERASE NEGATIVE (NEGATIVE); URINE NITRITE NEGATIVE (NEGATIVE); URINE PROTEIN NEGATIVE (NEGATIVE)
[2023-07-27 15:46] LABS: POTASSIUM 4.6 mmol/L (3.5-5.1)
[2023-07-27 15:48] LABS: CALCIUM 9.2 mg/dL (8.5-10.1)
[2023-07-27 15:49] LABS: ALBUMIN 3.4 g/dl (3.4-5.0); BLOOD UREA NITROGEN 14.5 mg/dL (7-18); MAGNESIUM 2.1 mg/dL (1.8-2.4)
[2023-07-27 15:52] LABS: CREATININE 0.7 mg/dL (0.55-1.3)
[2023-07-27 15:53] LABS: TOT PROT 7.2 g/dl (6.4-8.2)
[2023-07-27 15:54] LABS: BILIRUBIN,TOTAL 0.3 mg/dL (0.2-1)
[2023-07-27] MEDS ORDERED: ACETAMINOPHEN 1000 MG/100 ML BAG IVPB ONE (16:18)
[2023-07-27] MEDS ORDERED: SODIUM CHLORIDE 0.9% 500 ML INFUS.BAG IV ONE (16:18)
[2023-07-27] MEDS ORDERED: ACETAMINOPHEN INJECTION 100 ML IVPB ONE (16:21)
[2023-07-27 22:13] VITALS: RESP 18; BMI 31.9
[2023-07-28] MEDS: ACETAMINOPHEN 1000 MG/100 ML BAG IVPB PRN ×2 (02:45→20:39)
[2023-07-28] MEDS: SODIUM CHLORIDE 1,000 ML IV SCH ×2 (02:46→15:33)
[2023-07-28] MEDS: LEVOTHYROXINE NA 25 MCG TABLET (FP) PO SCH (06:00)
[2023-07-28 09:52] LABS: BASO % 0.7 % (0-2.0); EOS % 1.8 % (0-4.5); HEMATOCRIT 36.6 % (32.4-45.2); HEMOGLOBIN 12.3 GM/dL (10.7-15.3); LYMPH % 33.1 % (8-40); MCH 30.6 pg (25.7-33.7); MCHC 33.5 g/dl (32.0-36.0); MEAN CELL VOLUME 91.4 fl (80-96); NEUT % 54.4 % (42.8-82.8); PLATELET COUNT 163 10^3/uL (134-434); RBC 4.01 M/mm3 (3.60-5.2); RDW 13.3 % (11.6-15.6); WHITE BLOOD COUNT 4.8 K/mm3 (4.0-10.0)
[2023-07-28 10:54] LABS: CALCIUM 8.9 mg/dL (8.5-10.1)
[2023-07-28 10:55] LABS: BLOOD UREA NITROGEN 10.4 mg/dL (7-18)
[2023-07-28 10:58] LABS: CREATININE 0.6 mg/dL (0.55-1.3)
[2023-07-29] MEDS: SODIUM CHLORIDE 1,000 ML IV SCH (02:30)
[2023-07-29] MEDS: LEVOTHYROXINE NA 25 MCG TABLET (FP) PO SCH (06:23)
[2023-07-29 08:48] VITALS: BP 145/75; PULSE 58; TEMP 98.5
[2023-07-29] MEDS ORDERED: metoPROLOL SUCCINATE 25 MG TAB.SR.24H (FP) PO SCH (10:00)
[2023-07-29] MEDS ORDERED: GABAPENTIN 300 MG CAPSULE PO SCH (22:00)
== END 2023-07-29 14:52 | disposition home or self-care (01) ==
LOC: JER 12:55 → JERBED 20:04 → J5S 21:28
PROVIDERS: ADMIT Internal Medicine; ATTEND Family Medicine
PROC: 3E033NZ Introduction of Analgesics, Hypnotics, Sedatives into Peripheral Vein, Percutaneous Approach (ICD-10-PCS; principal; 2023-07-27)
PROC: 3E0337Z Introduction of Electrolytic and Water Balance Substance into Peripheral Vein, Percutaneous Approach (ICD-10-PCS; 2023-07-27)
DX: N28.1 Cyst of kidney, acquired (principal); Z91.041 Radiographic dye allergy status; Z98.84 Bariatric surgery status; Z85.43 Personal history of malignant neoplasm of ovary; R73.03 Prediabetes; E06.3 Autoimmune thyroiditis; E78.5 Hyperlipidemia, unspecified
CPT/HCPCS: 36415; 71046-TC-FY; 74176-TC; 80048; 80053; 81003; 83735; 85025; 93005; 93010; 96361; 96374; 96375; 99285-25; G0378